=== PATIENT | female | born 1990 | race Caucasian/White ===

== ENCOUNTER 2023-11-03 12:29 | Emergency (ER) | payer OTHER ==
[~2023-11-03] VITALS: Ht 157.5 cm; Wt 82.3 kg
[2023-11-03 12:35] VITALS: PULSE 98
[2023-11-03] MEDS ORDERED: EPIN0.3P3 IM (15:39)
[2023-11-03] MEDS ORDERED: DIPH25CA83 PO (15:39)
[2023-11-03] MEDS: famotidine 20mg tablet PO ONE (15:58)
[2023-11-03] MEDS: diphenhydrAMINE 50 mg/ml inj IM ONE (15:58)
[2023-11-03 16:06] VITALS: BP 128/88; RESP 18; TEMP 98; O2SAT 99
== END 2023-11-03 16:07 | disposition home or self-care (01) ==
LOC: ER 12:30
DX: T78.49XA Other allergy, initial encounter (principal); R06.02 Shortness of breath; X58.XXXA Exposure to other specified factors, initial encounter
CPT/HCPCS: 96372; 99283; J1200

== ENCOUNTER 2024-01-04 12:37 | Emergency (ER) | payer OTHER ==
[~2024-01-04] VITALS: Ht 157.5 cm; Wt 81.8 kg
[~2024-01-04 12:37] MED LIST: DIPH25CA83 PO; EPIN0.3P3 IM
[2024-01-04 12:52] VITALS: TEMP 97.8
[2024-01-04] MEDS: methylPREDNISolone sod succ 125mg/2ml vial IM ONE (12:54)
[2024-01-04] MEDS: diphenhydrAMINE 50 mg/ml inj IM ONE (12:54)
[2024-01-04] MEDS ORDERED: albuterol 2.5 MG/3 ML nebule NEB SCH (14:10)
[2024-01-04] MEDS: albuterol 2.5 MG/3 ML nebule NEB ONE (14:34)
[2024-01-04] MEDS: ipratropium/albuterol 3ml nebule NEB PRN (14:34)
[2024-01-04 14:37] VITALS: PULSE 88; RESP 16; O2SAT 99
[2024-01-04] MEDS ORDERED: DEC4T PO (16:26)
[2024-01-04] MEDS ORDERED: EPIN0.3P3 IM (16:26)
[2024-01-04 16:54] VITALS: BP 132/89; PULSE 102; RESP 18; O2SAT 100
[2024-01-04] MEDS ORDERED: ALPR-624 PO (17:37)
== END 2024-01-04 16:57 | disposition home or self-care (01) ==
LOC: ER 12:38
DX: T78.40XA Allergy, unspecified, initial encounter (principal); Z88.1 Allergy status to other antibiotic agents; X58.XXXA Exposure to other specified factors, initial encounter
CPT/HCPCS: 71045; 93005; 94640; 96372; 99284; J1200; J2930; 94760